=== PATIENT | female | born 1950 | race African-American/Black ===

== ENCOUNTER → 2021-01-05 | Day surgery (SDC) | payer MEDICARE ==
[~2021-01-05] MED LIST: ACET500T68 PO; ALBU0.63 NEB; Albuterol Sulfate NEB; CEFP200T PO; CHOL500045 PO; FLUT1DIS IH; IBUP200T77 PO; IV RINGERS,LACTATED 1000ML 1,000 ML IV SCH; LEVO25TA55 PO; LIDOCAINE 2% PF 5 ML VIAL. ONE; MONT10TA49 PO; OSEL75CA PO; PROPOFOL 10 MG/ML (20ML) VIAL. IV ONE; SIME125T PO; VENTOLIN HFA18 GM IH
[2021-01-05 14:15] VITALS: BP 151/76
== END | disposition home or self-care (01) ==
LOC: SURG 11:10
PROVIDERS: ATTEND Internal Medicine Gastroenterology
DX: Z12.11 Encounter for screening for malignant neoplasm of colon (principal); K64.0 First degree hemorrhoids; K57.30 Diverticulosis of large intestine without perforation or abscess without bleeding; K21.9 Gastro-esophageal reflux disease without esophagitis; I10 Essential (primary) hypertension; J45.909 Unspecified asthma, uncomplicated; G47.30 Sleep apnea, unspecified; E66.9 Obesity, unspecified; E03.9 Hypothyroidism, unspecified; M19.90 Unspecified osteoarthritis, unspecified site; Z86.010 Personal history of colon polyps; Z86.73 Personal history of transient ischemic attack (TIA), and cerebral infarction without residual deficits; Z90.710 Acquired absence of both cervix and uterus; Z98.890 Other specified postprocedural states; Z79.899 Other long term (current) drug therapy; Z91.041 Radiographic dye allergy status; Z88.8 Allergy status to other drugs, medicaments and biological substances; Z20.822 Contact with and (suspected) exposure to COVID-19
CPT/HCPCS: 87426; G0105; J2704; 45378

== ENCOUNTER 2021-02-08 10:29 | Emergency (ER) | payer MEDICARE ==
[~2021-02-08] VITALS: Ht 160 cm; Wt 85.4 kg
[~2021-02-08 10:29] MED LIST changes: -IV RINGERS,LACTATED 1000ML 1,000 ML IV SCH; -LIDOCAINE 2% PF 5 ML VIAL. ONE; -PROPOFOL 10 MG/ML (20ML) VIAL. IV ONE
[2021-02-08] MEDS ORDERED: ONDANSETRON PF 4 MG/2 ML VIAL. IV ONE (13:45)
[2021-02-08] MEDS ORDERED: IV NORMAL SALINE 1000ML BAG 1,000 ML IV ONE (13:45)
[2021-02-08] MEDS ORDERED: FAMOTIDINE 20 MG/2 ML VIAL IVP ONE (13:45)
[2021-02-08 13:50] LABS: BASO % 1 % (0-3); EOS # 0.1 x10^3/uL (0.0-0.7); EOS % 1 % (0-3); HEMATOCRIT 39.4 % (36.0-47.0); HEMOGLOBIN 12.8 g/dL (12.0-15.5); LYMPH # 1.8 x10^3/uL (1.0-4.8); LYMPH % 33 % (24-48); MEAN CORPUSCULAR HEMOGLOBIN 28 pg (25-35); MEAN CORPUSCULAR HGB CONC 32 g/dL (31-37); MEAN CORPUSCULAR VOLUME 85 fL (79-100); MONO # 0.4 x10^3/uL (0.0-1.1); MONO % 7 % (0-9); NEUT # 3.1 x10^3/uL (1.8-7.7); NEUT % 57 % (31-73); PLATELET COUNT 200 x10^3/uL (140-400); RED BLOOD COUNT 4.63 x10^6/uL (3.50-5.40); RED CELL DISTRIBUTION WIDTH 14.3 % (11.5-14.5); WHITE BLOOD COUNT 5.5 x10^3/uL (4.0-11.0)
[2021-02-08 13:54] LABS: BILIRUBIN,URINE NEGATIVE (NEG); CLARITY,URINE CLEAR; COLOR,URINE YELLOW; NITRITE,URINE NEGATIVE (NEG); PROTEIN,URINE NEGATIVE (NEG-TRACE)
[2021-02-08 14:00] LABS: CALCIUM 8.7 mg/dL (8.5-10.1); GFR 65.9; POTASSIUM 3.7 mmol/L (3.5-5.1)
[2021-02-08 14:05] LABS: ALBUMIN 3.8 g/dL (3.4-5.0); ALBUMIN/GLOBULIN RATIO 1.3 (1.0-1.7); MAGNESIUM 2.3 mg/dL (1.8-2.4); TOTAL BILIRUBIN 0.7 mg/dL (0.2-1.0); TOTAL PROTEIN 6.7 g/dL (6.4-8.2)
[2021-02-08 14:14] LABS: RBC,URINE 0 /HPF (0-2); WBC,URINE OCC /HPF (0-4)
[2021-02-08 14:15] LABS: BACTERIA,URINE FEW /HPF (0-FEW)
--- NOTE | 2021-02-08 16:03 | NUR ---
Pt felt a little woozy when first getting up and out of bed but was otherwise at her baseline.
[2021-02-08] MEDS ORDERED: ONDA4TAB12 PO (16:41)
--- NOTE | 2021-02-08 16:43 | ED.ADGEN ---
Past Medical History Past Medical History: Asthma, Bronchitis, COPD, Hypertension, Other Additional Past Medical Histor: cataracts Past Surgical History: Appendectomy, Hysterectomy, Other Additional Past Surgical Histo: carpal tunnel, lens transplant Smoking Status: Never Smoker Alcohol Use: None Drug Use: None General Adult EDM: Chief Complaint: DIZZY/LIGHT HEADED HPI: HPI: Patient is a 70 year old female who presents emergency department with comp laints of nausea, vomiting, and diarrhea for the last 5 days. Patient states she has vomited twice and had 2 episodes of diarrhea in the last 24 hours. She was seen at [facility] last week and was prescribed some medications and told that the symptoms would last about 5 days. She went to her primary care doctor today for follow-up who sent her to the ER for evaluation for dehydration. Patient denies any fever, shortness of breath, wheezing, chest pain, palpitations, headache, dysuria, hematuria, or increased urinary frequency. She complains of a dry cough that she has had for about a week. Patient states she has received both COVID-19 immunizations and did have a negative Covid test at [facility] last week. She denies any known Covid exposure. She currently complains of epigastric pain that she describes as burning and she rates 8 out of 10 on the pain scale, she denies any alleviating factors, the pain increases with palpation and vomiting. Review of Systems: Review of Systems: Complete ROS is negative unless otherwise noted in HPI. Current Medications: Current Medications Medications (Trade) Dose Ordered Sig/[facility] Start Time Stop Time Status Last Admin Dose Admin Famotidine (Pepcid Vial) 20 mg 1X ONCE 02/08/21 13:45 02/08/21 13:46 DC 02/08/21 14:05 20 MG Ondansetron HCl (Zofran) 4 mg 1X ONCE 02/08/21 13:45 02/08/21 13:46 DC 02/08/21 14:02 4 MG Sodium Chloride 1,000 ml @ 1,000 mls/hr 1X ONCE 02/08/21 13:45 02/08/21 14:44 DC 02/08/21 14:01 1,000 MLS/HR Allergies: Allergies: Allergies Coded Allergies Type Severity Reaction Last Updated Verified raspberry Allergy Severe swelling 02/08/21 No Iodinated Contrast Media Allergy Intermediate Rash, 02/08/21 No Physical Exam: PE: See Above Constitutional: Well developed, well nourished, no acute distress, non-toxic appearance. [] HENT: Normocephalic, atraumatic, bilateral external ears normal, nose normal, dry mucous membrane. [] Eyes: PERRLA, EOMI, conjunctiva normal, no discharge. [] Neck: Normal range of motion, no stridor. [] Cardiovascular:Heart rate regular rhythm no murmur, Lungs & Thorax: Respirations even and unlabored, no retractions, no respiratory distress, lungs CTA Abdomen: soft, epigastric tenderness to palpation otherwise soft and nontender, no palpable mass, no pulsatile mass, no rebound tenderness, no guarding Skin: Warm, dry, no erythema, no rash. [] Extremities: No cyanosis, ROM intact, no edema. [] Neurologic: Alert and oriented X 3, normal motor, normal sensory, no focal deficits noted. [] Psychologic: Affect normal, judgement normal, mood normal. [] Current Patient Data: Labs: Laboratory Tests Test 02/08/21 11:04 02/08/21 13:30 Urine Collection Type Void Urine Color Yellow Urine Clarity Clear Urine pH 6.0 (<5.0-8.0) Urine Specific [place] 1.015 (1.000-1.030) Urine Protein Negative mg/dL (NEG-TRACE) Urine Glucose (UA) Negative mg/dL (NEG) Urine Ketones (Stick) Negative mg/dL (NEG) Urine Blood Negative (NEG) Urine Nitrite Negative (NEG) Urine Bilirubin Negative (NEG) Urine Urobilinogen Dipstick 1.0 mg/dL (0.2 mg/dL) Urine Leukocyte Esterase Trace (NEG) Urine RBC 0 /HPF (0-2) Urine WBC Occ /HPF (0-4) Urine Squamous Epithelial Cells Many /LPF Urine Bacteria Few /HPF (0-FEW) Urine Mucus Slight /LPF White Blood Count 5.5 x10^3/uL (4.0-11.0) Red Blood Count 4.63 x10^6/uL (3.50-5.40) Hemoglobin 12.8 g/dL (12.0-15.5) Hematocrit 39.4 % (36.0-47.0) Mean Corpuscular Volume 85 fL (79-100) Mean Corpuscular Hemoglobin 28 pg (25-35) Mean Corpuscular Hemoglobin Concent 32 g/dL (31-37) Red Cell Distribution Width 14.3 % (11.5-14.5) Platelet Count 200 x10^3/uL (140-400) Neutrophils (%) (Auto) 57 % (31-73) Lymphocytes (%) (Auto) 33 % (24-48) Monocytes (%) (Auto) 7 % (0-9) Eosinophils (%) (Auto) 1 % (0-3) Basophils (%) (Auto) 1 % (0-3) Neutrophils # (Auto) 3.1 x10^3/uL (1.8-7.7) Lymphocytes # (Auto) 1.8 x10^3/uL (1.0-4.8) Monocytes # (Auto) 0.4 x10^3/uL (0.0-1.1) Eosinophils # (Auto) 0.1 x10^3/uL (0.0-0.7) Basophils # (Auto) 0.0 x10^3/uL (0.0-0.2) Sodium Level 145 mmol/L (136-145) Potassium Level 3.7 mmol/L (3.5-5.1) Chloride Level 106 mmol/L (98-107) Carbon Dioxide Level 30 mmol/L (21-32) Anion Gap 9 (6-14) Blood Urea Nitrogen 7 mg/dL (7-20) Creatinine 1.0 mg/dL (0.6-1.0) Estimated GFR (Cockcroft-Gault) 65.9 BUN/Creatinine Ratio 7 (6-20) Glucose Level 89 mg/dL (70-99) Calcium Level 8.7 mg/dL (8.5-10.1) Magnesium Level 2.3 mg/dL (1.8-2.4) Total Bilirubin 0.7 mg/dL (0.2-1.0) Aspartate Amino Transferase (AST) 12 U/L (15-37) L Alanine Aminotransferase (ALT) 14 U/L (14-59) Alkaline Phosphatase 65 U/L (46-116) Total Protein 6.7 g/dL (6.4-8.2) Albumin 3.8 g/dL (3.4-5.0) Albumin/Globulin Ratio 1.3 (1.0-1.7) Lipase 64 U/L (73-393) L Laboratory Tests 02/08/21 13:30 Laboratory Tests 02/08/21 13:30 Vital Signs: Vital Signs Date Time Temp Pulse Resp B/P (MAP) Pulse Ox O2 Delivery O2 Flow Rate FiO2 02/08/21 14:07 63 20 168/76 (106) 100 Room Air 02/08/21 11:10 98.4 98.4 EKG: EK-sinus rhythm with left axis deviation, rate 70, left anterior fascicular block, no STEMI, read by Dr. Guzmán [] Heart Score: C/O Chest Pain: No Risk Factors: Risk Factors: DM, Current or recent (<one month) smoker, HTN, HLP, family history of CAD, obesity. Risk Scores: Score 0 - 3: 2.5% MACE over next 6 weeks - Discharge Home Score 4 - 6: 20.3% MACE over next 6 weeks - Admit for Clinical Observation Score 7 - 10: 72.7% MACE over next 6 weeks - Early Invasive Strategies Radiology/Procedures: Radiology/Procedures: [] Course & Med Decision Making: Course & Med Decision Making Pertinent Labs and Imaging studies reviewed. (See chart for details) Patient is a 70-year-old female who presents emergency department with complaints of nausea, vomiting, and diarrhea for the last 5 days. She reported feeling lightheaded with position changes. Patient was given a liter normal saline in the emergency department, 20 mg of Pepcid, and 4 mg of IV Zofran. She reported feeling better after these medications. CBC, CMP, and UA were unremarkable, patient's EKG revealed no acute findings. Her vital signs are stable in the emergency department. Patient has a history of hypertension, she was hypertensive in the ER but will go home and take her blood pressure medication. Patient was able to ambulate in the ER with standby assist. She stated that she felt better and would like to go home. I encouraged the patient to follow a clear liquid diet for 24 hours then advance the diet as tolerated starting with bland foods such as bananas, rice, applesauce, and toast. I encouraged her to follow-up with her primary care doctor in the next 1 to 2 days for reevaluation, return to the ER symptoms worsen or fever develop. Will prescribe the patient some more nausea medication as requested. Patient verbalized an understanding of home care, medications, follow-up, and return to ED instructions and was in agreement with the plan of care. [] [place] Disclaimer: [place]a Disclaimer: This electronic medical record was generated, in whole or in part, using a voice recognition dictation system. Departure Departure Impression: Primary Impression: Nausea, vomiting, and diarrhea Additional Impression: Epigastric pain Disposition: HOME / SELF CARE / HOMELESS Condition: STABLE Referrals: JOHNNY HUI D.O. (PCP) Patient Instructions: Diarrhea, [id number], Diet for Diarrhea, Adult, Nausea and Vomiting, [id number] Additional Instructions: Fill prescriptions and use them as directed. Recommend clear fluids for the next 24 hours. Then you may advance to bland foods such as bananas, rice, applesauce, and dry toast. Follow-up with your primary care doctor in the next 1-2 days. Return to the emergency room if your symptoms worsen or if fever develops. Scripts Ondansetron (ONDANSETRON ODT) 4 Mg Tab.rapdis 1 TAB PO PRN Q6-8HRS PRN for NAUSEA/VOMITING for 4 Days, #16 TAB 0 Refills Prov: VIVIAN GRESHAM APRN 02/08/21 Problem Qualifiers VIVIAN GRESHAM APRN February 08, 2021 16:43
[2021-02-08 16:45] VITALS: BP 167/74
--- NOTE | 2021-02-08 17:40 | EKG ---
[facility] [address] [place] [address] Test Date: 2021-02-08 Test Time: 11:12:16 Pat Name: SHORTY GUTIERREZ Department: Room: Gender: F Customer Care Professional: : [id number] Requested By: VIVIAN GRESHAM Order Number: [id number] Reading MD: Measurements Intervals [place] Rate: 70 P: 38 RI: 160 QRS: -38 QRSD: 98 T: -10 QT: 414 QTc: 450 Interpretive Statements SINUS RHYTHM ABNORMAL LEFT AXIS DEVIATION R-S TRANSITION ZONE IN V LEADS DISPLACED TO THE LEFT LEFT ANTERIOR FASCICULAR BLOCK QRS(T) CONTOUR ABNORMALITY CONSIDER ANTEROSEPTAL MYOCARDIAL DAMAGE ABNORMAL ECG RI6.01 No previous ECG available for comparison
== END 2021-02-08 16:56 | disposition home or self-care (01) ==
LOC: ER 10:29
DX: R11.2 Nausea with vomiting, unspecified (principal); R19.7 Diarrhea, unspecified; R10.13 Epigastric pain; J44.9 Chronic obstructive pulmonary disease, unspecified; I10 Essential (primary) hypertension; Z90.89 Acquired absence of other organs; Z90.710 Acquired absence of both cervix and uterus; Z91.041 Radiographic dye allergy status; Z91.018 Allergy to other foods
CPT/HCPCS: 36415; 80053; 81001; 83690; 83735; 85025; 87086; 93005; 96361; 96374; 96375; 99284; J2405; J3490; J7030